=== PATIENT | male | born 1970 | race Caucasian/White ===

== ENCOUNTER 2019-05-19 11:08 | Day surgery (SDC) | payer BC ==
[2019-05-17 15:50] VITALS: BMI 25.8
--- NOTE | 2019-05-18 13:01 | P.GSHP ---
History of Present Illness H&P Date: 05/18/19 Chief Complaint: Left renal colic The patient is a 48-year-old white male with a history of urolithiasis. On 05/14/2019 he experienced acute onset of left flank pain associated with nausea and vomiting. A computed tomography scan showed mild to moderate left hydronephrosis due to a 7 mm left proximal ureteral calculus. Approximately 6 left renal calculi were also seen, measuring up to 5 mm in size. Only tiny calculi were seen within the right kidney. - Constitutional Constitutional: Reports chills - Gastrointestinal Gastrointestinal: Reports nausea, Reports vomiting - Genitourinary (Female) Genitourinary: Reports flank pain, Reports kidney stones, Denies dysuria, Denies hematuria Past Medical History Past Medical History: Diabetes Mellitus Additional Past Medical History / Comment(s): kidney stones, insulin pump History of Any Multi-Drug Resistant Organisms: None Reported Past Surgical History: Orthopedic Surgery Additional Past Surgical History / Comment(s): ureteroscopy with stent insertion, left detached retina repair, left knee surgery, right hand surgery Past Anesthesia/Blood Transfusion Reactions: Postoperative Nausea & Vomiting (PONV) Smoking Status: Current some day smoker Medications and Allergies Home Medications Medication Instructions Recorded Confirmed Type Ondansetron Odt [Zofran Odt] 4 mg PO Q8HR PRN #10 tab 05/14/19 05/17/19 Rx Tamsulosin [Flomax] 0.4 mg PO DAILY #7 cap 05/14/19 05/17/19 Rx HYDROcodone/APAP 5-325MG [[place] 1 - 2 tab PO Q4H PRN 05/17/19 05/17/19 History 5-325] INSULIN LISPRO (For Pump) [humaLOG 0.01 units SQ-PUMP CONTINUOUS 05/17/19 05/17/19 History (For Pump)] Allergies Allergy/AdvReac Type Severity Reaction Status Date / Time Penicillins Allergy Rash/Hives Verified 05/17/19 15:43 Surgical - Exam - General well developed, well nourished, no distress - Neck no masses, trachea midline - Respiratory normal respiratory effort, clear to auscultation - Cardiovascular Rhythm: regular Abnormal Heart Sounds: no systolic murmur, no diastolic murmur, no rub, no S3 Gallop, no S4 Gallop, no click, no other - Abdomen Abdomen: soft, tender (Mild left-sided tenderness), no guarding, no rigid, no rebound - Genitourinary normal penis with no external lesions, testicles non-tender - Psychiatric oriented to time, oriented to person, oriented to place, speech is normal, memory intact Results - Imaging CT scan - abdomen: report reviewed, image reviewed Assessment and Plan (1) Left ureteral stone Status: Acute Code(s): N20.1 - CALCULUS OF URETER SNOMED Code(s): 20183237 (2) Hydronephrosis with renal and ureteral calculous obstruction Status: Acute Code(s): N13.2 - HYDRONEPHROSIS WITH RENAL AND URETERAL CALCULOUS OBSTRUCTION SNOMED Code(s): 346416888 (3) Calculus of kidney Status: Acute Code(s): N20.0 - CALCULUS OF KIDNEY SNOMED Code(s): 22219959 Plan: I had a lengthy discussion with the patient regarding his left proximal ureteral calculus. Alternative treatment options were reviewed. He has elected to undergo cystoscopy, left ureteroscopy with Holmium laser lithotripsy, left ureteral stent insertion. Potential risks were reviewed, which include anesthesia, bleeding, infection, inability to remove the calculus, and ureteral injury.
[~2019-05-19 11:08] MED LIST: DEXAMETHASONE SOD PHOSPHATE 10 MG/ML 1 ML VIAL IV ONE; LACTATED RINGERS 1,000 ML IV SCH; LEVOFLOXACIN 500MG-D5W PMX 500 MG in DEXTROSE/WATER 1 100ML.BAG IVPB ONE; MIDAZOLAM 2 MG/2 ML VIAL IV PRN; SCOPOLAMINE 1.5MG/72HR PATCH TRANSDERM ONE
--- NOTE | 2019-05-19 11:38 | XR ---
EXAMINATION TYPE: XR KUB DATE OF EXAM: 05/19/2019 11:31 AM CLINICAL HISTORY: Preoperative evaluation for cystoscopy. Left-sided nephrolithiasis. Left-sided abd ominal pain. TECHNIQUE: Single supine KUB image of the abdomen is obtained. COMPARISON: None. FINDINGS: The left ureteral calculus measuring 7 mm is seen adjacent to the transverse process at L4. There are multiple additional left-sided renal calculi, at least 4 in number measuring up to 5 mm. T he right renal shadow is obscured by bowel. Moderate degree colonic fecal stasis. 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 Degenerative changes of the hips. IMPRESSION: 7 mm left ureteral calculus is seen at the level of the L4 transverse process. Additional left-sided renal calculi. Right renal shadow is obscured by bowel.
[2019-05-19 12:08] LABS: Glucose,Whole Blood 145 mg/dL (75-99)
[2019-05-19] MEDS: ONDANSETRON 4 MG/2 ML VIAL IVP ONE ×2 (12:14→16:15)
[2019-05-19] MEDS ORDERED: FAMOTIDINE 20 MG/2 ML VIAL IVP ONE (12:16)
[2019-05-19] MEDS ORDERED: METOCLOPRAMIDE 5 MG/ML 2 ML VIAL IVP ONE (12:19)
[2019-05-19] MEDS ORDERED: SUCCINYLCHOLINE CHLORIDE 100 MG/5 ML SYR IV ONE (13:56)
[2019-05-19] MEDS ORDERED: PROPOFOL 10 MG/ML 20 ML VIAL IV ONE (13:56)
[2019-05-19] MEDS ORDERED: LIDOCAINE 1% INJ 10MG/ML (20 ML MDV) ONE (13:56)
[2019-05-19] MEDS ORDERED: fentaNYL (PF) 50 MCG/ML 2 ML AMP ONE (13:56)
[2019-05-19] MEDS ORDERED: MIDAZOLAM 2 MG/2 ML VIAL ONE (13:56)
[2019-05-19] MEDS ORDERED: HYDROmorphone (PF) 1 MG/ML ONE (13:56)
[2019-05-19] MEDS ORDERED: LACTATED RINGERS 1,000 ML IV ONE ×2 (15:19)
[2019-05-19 16:11] VITALS: TEMP 97.7
[2019-05-19] MEDS ORDERED: KETOROLAC 30 MG/ML 1 ML VIAL IVP ONE (16:15)
[2019-05-19] MEDS: HYDROmorphone 0.5 MG/0.5 ML SYRINGE IVP PRN ×3 (16:19→16:44)
--- NOTE | 2019-05-19 16:27 | P.OP ---
Date of Procedure: 05/19/19 Preoperative Diagnosis: Left ureteral calculus, left renal calculi Postoperative Diagnosis: Same Procedure(s) Performed: Cystoscopy, left ureteroscopy with Holmium laser lithotripsy and stone basketing, left ureteral stent insertion Anesthesia: JENNIEA Surgeon: Perry Antonio Estimated Blood Loss (ml): 10 IV fluids (ml): 700 Pathology: other (Calculus fragments, sent for chemical analysis) Condition: stable Disposition: PACU Indications for Procedure: The patient is a 48-year-old white male with a history of urolithiasis. On 05/14/2019 he experienced acute onset of left flank pain associated with nausea and vomiting. A computed tomography scan showed mild to moderate left hydronephrosis due to a 7 mm left proximal ureteral calculus. Approximately 6 left renal calculi were also seen, measuring up to 5 mm in size. Only tiny calculi were seen within the right kidney. Operative Findings: Left mid-ureteral calculus. Multiple left renal calculi. All fragmented and removed via stone basketing. Description of Procedure: The patient was taken to the operating room and placed in the dorsolithotomy position, with legs supported in Arnol stirrups. The external genitalia was prepped and draped sterilely. The 30 lens was used to introduce the 19-Uzbek Stortz cystoscopic sheath through the urethra and into the bladder under direct vision. The prostatic urethra showed evidence of mild lateral lobe enlargement. The bladder was examined in its entirety. Both ureteral orifices were normal anatomic location and configuration. No tumors or foreign bodies were seen. A 0.038 inch Glidewire was passed through the cystoscope. The left ureteral orifice was cannulated, and the Glidewire was advanced up to the calculus, which was located at the level of L4. The Glidewire could not be passed beyond the calculus. The cystoscope was removed, and an 11/13-Uzbek ureteral access catheter was passed over the wire, up to the mid ureter. The Olympus mini flexible ureteroscope was passed through the ureteral access catheter sheath and advanced under direct vision, up to the calculus. The 200 micron Holmium laser probe was passed through the ureteroscope, and lithotripsy was performed. Once fragmentation of the calculus was partially completed, the calculus migrated proximally up to the kidney. Lithotripsy was completed within the left renal pelvis. The urine within the renal pelvis was cloudy, thus limiting visualization. The urine was aspirated, thus improving visualization. The calculus was very dense, likely composed of calcium oxalate monohydrate. Once the calculus was fragmented, each calyx was examined. Approximately 5 additional calculi were identified, and these were fragmented as well. 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 After fragmenting the calculi, a 1.9-Uzbek nitinol basket was passed through the ureteroscope and each of the calculus fragments was removed via stone basketing. Once the procedure was completed, there were no visible residual calculus fragments. The ureteroscope was removed. The Glidewire was passed through the ureteral access catheter sheath and up to the left renal pelvis. The ureteral access catheter sheath was removed, and the Glidewire was backloaded into the cystoscope, which was passed into the bladder. A 26 cm, 4.8-Uzbek double-J ureteral stent was placed over the wire. Proper stent positioning was verified fluoroscopically and endoscopically. The bladder was emptied and the cystoscope removed. The patient tolerated the procedure well and was taken to the recovery room in stable condition. [facility] [place]: Procedure Acuity: Semi-Urgent Stone Size and Location: 7 mm, left proximal ureter Ureteral Dilation: No Ureteral Access Sheath Used: Yes Stone Sent for Analysis: Yes All Stones/Fragments Were Removed with a Basket: Yes Complications: No Preoperative Antibiotics Given: Yes Stent Placed: Yes If Stent Placed, Was String Left Attached: No If Stent Placed, When is it to be Removed: 1 week Discharge Medications: None
[2019-05-19 16:30] LABS: Glucose,Whole Blood 133 mg/dL (75-99)
[2019-05-19] MEDS ORDERED: diphenhydrAMINE 50 MG/ML 1 ML VIAL IVP ONE (16:36)
[2019-05-19 18:16] VITALS: BP 155/84
[2019-05-19 19:18] VITALS: PULSE 108; RESP 16
--- NOTE | 2019-05-20 07:26 | FL ---
EXAMINATION TYPE: FL guidance operating room DATE OF EXAM: 05/19/2019 CLINICAL HISTORY: Fluoroscopy documentation during ureteral stone removal and stent placement. TECHNIQUE: Fluoroscopy. COMPARISON: None. FINDINGS: Fluoroscopic guidance was provided during pain relief procedure performed by Dr. Antonio. A total of 4 seconds of fluoroscopic time was utilized during the procedure and 1 spot image was acqui red. Images acquired shows ureteral stent placement. IMPRESSION: As Above.
== END 2019-05-19 19:15 | disposition home or self-care (01) ==
LOC: OR 11:08
PROVIDERS: ATTEND Urology
DX: N13.2 Hydronephrosis with renal and ureteral calculous obstruction (principal); E11.9 Type 2 diabetes mellitus without complications; F17.200 Nicotine dependence, unspecified, uncomplicated; Z79.4 Long term (current) use of insulin; Z79.899 Other long term (current) drug therapy; Z88.0 Allergy status to penicillin; Z87.442 Personal history of urinary calculi; Z98.890 Other specified postprocedural states
CPT/HCPCS: 93005; 82365; 74018; 52356; C2625; C1769; J2250; J1200; J1100; J2765; J2405; J1956; J2001; J3010; J1885; J1170 ×2; J0330; J2704

== ENCOUNTER → 2019-07-11 | Outpatient (CLI) | payer BC | END | disposition home or self-care (01) | DX: R93.41 Abnormal radiologic findings on diagnostic imaging of renal pelvis, ureter, or bladder (principal) | CPT/HCPCS: 76770 ==